=== PATIENT | female | born 1980 | race Caucasian/White ===

== ENCOUNTER 2022-03-18 09:30 | Emergency (ER) | payer SELFPAY ==
[2022-03-18 09:36] VITALS: BP 120/82; PULSE 75; RESP 20; TEMP 37; O2SAT 97; BMI 25.8
--- NOTE | 2022-03-18 10:51 | ED.GENADULT ---
HPI - General Adult General Date Seen: 03/18/22 Chief complaint: Eye Problems Stated complaint: Eye problem Time Seen by Provider: 03/18/22 10:11 Source: patient History of Present Illness HPI narrative: Patient is a 41-year-old woman who presents for evaluation of asymmetric pupil. She says that when she woke up this morning she noticed that her right pupil looked bigger than the left. She felt like her vision was a little blurry as well. She does note that she smoked pot last night. She also says she has been using a new hair product which she got in her eyes yesterday. She does not have any eye pain. By the time she got here, she says that her pupil asymmetry seems to be resolved. She now has no complaints. She did not have any other neurologic symptoms, no muscle weakness, no headache, no sweating, no ptosis, no eye redness. Related Data Home Medications Medication Instructions Recorded Confirmed escitalopram oxalate 20 mg tablet 20 mg PO DAILY 03/18/22 03/18/22 Allergies Allergy/AdvReac Type Severity Reaction Status Date / Time No Known Drug Allergies Allergy Verified 03/18/22 09:43 Review of Systems Status of ROS: Reports: 6 or more systems reviewed and unremarkable except as noted in History and below [facility] Social History Smoking Status: Current every day smoker What tobacco products do you use: cigarettes Do you use any of these nicotine containing products: None Second hand tobacco smoke exposure: No How often do you have a drink containing alcohol: never How often do you have six or more drinks on one occasion: Never AUDIT-C Alcohol total score: 0 Non-prescribed substance use: marijuana (any form) Exam Narrative: Exam Narrative: Vital signs reviewed In general, an alert, nontoxic woman. Head: Normocephalic, atraumatic. Eyes sclera clear. Pupils equal and reactive bilaterally. Extraocular movements are full. Lids are normal, no ptosis. ENT: Nares are clear. Oropharynx is normal. Neck is supple. Neurological: She is alert, conversant. Speech fluent. Face is symmetric. Moves extremities equally. Gait is stable Const: Vital Signs, click to edit/add: Vital Signs - 24 hr 03/18/22 09:36 Temperature 98.6 F Pulse Rate [Left P ulse Oximeter] 75 Respiratory Rate 20 Blood Pressure [Le ft Upper Arm] 120/82 Pulse Oximetry 97 Course Course Hospital Course: At this time, pupils are equal, symptoms have resolved. No evidence of Ruslan syndrome, neurologic exam is normal. I do not know exactly which she was seen earlier given that exam is normal now. Discussed that it is possible she could have gotten something in her eye which caused some pupillary dilation, as there are some compound switch contain atropine or something similar which she could have touched in the gotten in her eye. Unclear with this would of been based on her history. For now, given that exam is normal and symptoms have resolved, I would recommend observation. If she has recurrence, would recommend follow up with eye doctor, or if after hours return to ER. Vital Signs Vital signs: Initial Vital Signs Temperature 98.6 F 03/18/22 09:36 Temperature Source Temporal Artery Scan 03/18/22 09:36 Pulse Rate 75 03/18/22 09:36 Respiratory Rate 20 03/18/22 09:36 Blood Pressure 120/82 03/18/22 09:36 Blood Pressure Mean 94 03/18/22 09:36 Blood Pressure Position Sitting 03/18/22 09:36 Pulse Oximetry 97 03/18/22 09:36 Oxygen Delivery Method 03/18/22 09:36 Vital Signs Temperature 98.6 F 03/18/22 09:36 Pulse Rate 75 03/18/22 09:36 Respiratory Rate 20 03/18/22 09:36 Blood Pressure 120/82 03/18/22 09:36 Pulse Oximetry 97 03/18/22 09:36 Temperature 98.6 F 03/18/22 09:36 Pulse Rate 75 03/18/22 09:36 Respiratory Rate 20 03/18/22 09:36 Blood Pressure 120/82 03/18/22 09:36 Pulse Oximetry 97 03/18/22 09:36 Discharge Plan Discharge Clinical Impression: Pupil asymmetry Patient Disposition: Home, Self-Care Condition: Improved Additional Instructions: See your eye doctor or return if you have recurrence of symptoms. Prescriptions: No Action escitalopram oxalate 20 mg tablet 20 mg PO DAILY 0RF Stand Alone Forms: [employer] Info Instructions
== END 2022-03-18 10:44 | disposition home or self-care (01) ==
LOC: ED 10:44
PROVIDERS: Emergency Provider Emergency Medicine
DX: H21.561 Pupillary abnormality, right eye (principal)
CPT/HCPCS: 99281; 99282; 99283

== ENCOUNTER 2024-09-04 12:47 | Outpatient (CLI) | payer MEDICAID, SELFPAY | END 2024-09-04 12:48 | disposition home or self-care (01) | PROVIDERS: Visit Provider Physician Assistant | DX: R07.9 Chest pain, unspecified (principal); R06.00 Dyspnea, unspecified; R07.89 Other chest pain | CPT/HCPCS: 84484; 85379 ==

== ENCOUNTER 2024-09-04 15:40 | Outpatient (CLI) | payer MEDICAID, SELFPAY ==
--- NOTE | 2024-09-04 16:00 | CRLHL7_ITS ---
For Patients: As a result of the 21st Century Cures Act, medical imaging exams and procedure reports are released immediately into your electronic medical record. You may view this report before your referring provider. If you have questions, please contact your health care provider. INDICATION: Dyspnea. Chest pain. TECHNIQUE: Multiplanar CT pulmonary angiogram was performed after the administration of 95 mL of Isovue 370 intravenous contrast. COMPARISON: Same day chest radiographs. FINDINGS: Lower neck: The visualized thyroid is unremarkable. Cardiovascular: Contrast opacification of the pulmonary arterial tree is adequate. Heart size is normal. Thoracic aorta and pulmonary artery are normal in caliber. No significant atherosclerotic calcifications of the aortic arch. No significant coronary arterial calcifications. No pulmonary embolus. Mediastinum and lymph nodes: Prominent mediastinal and hilar lymph nodes. Lungs: 10 mm right apical subpleural nodule (6:27). No focal consolidation. Dependent atelectasis. Linear bandlike opacification of the lung bases bilaterally, likely subsegmental atelectasis and/or scarring. Airways: The trachea remains patent and midline. Pleura: No pleural effusions or pneumothorax Chest wall: Unremarkable. Bones: Partially visualized left kidney appears markedly atrophic. No acute findings in the visualized upper abdomen. Upper abdomen: Unremarkable. No reflux of contrast material into the IVC. IMPRESSION: 1. 10 mm right apical pulmonary nodule, indeterminate. Recommend short interval follow up CT at 3 months, PET-CT or histologic tissue analysis for further evaluation to exclude underlying neoplasm, per Fleischner society guidelines. 2. Prominent mediastinal and hilar lymph nodes, indeterminate and of uncertain clinical etiology. Recommend attention on short interval follow up imaging as well. 3. No pulmonary embolus. No CT evidence of right heart strain. Please note that all CT scans at this facility use dose modulation, iterative reconstruction, and/or weight-based dosing when appropriate to reduce radiation dose to as low as reasonably achievable. Dictated by Jay Jc MD @ 09/04/2024 5:00:19 PM (Electronically Signed)
== END 2024-09-04 15:41 | disposition home or self-care (01) ==
LOC: CT 15:42
PROVIDERS: Visit Provider Physician Assistant
DX: R06.00 Dyspnea, unspecified (principal); R91.1 Solitary pulmonary nodule; R07.89 Other chest pain
CPT/HCPCS: 71275; Q9967